=== PATIENT | female | born 1950 | race Caucasian/White ===

== ENCOUNTER → 2023-01-02 | Outpatient (CLI) | payer OTHER | END | disposition home or self-care (01) | LOC: RAD 11:26 | PROVIDERS: ATTEND Orthopaedic Surgery | DX: M25.561 Pain in right knee (principal); M25.562 Pain in left knee ==

== ENCOUNTER 2023-10-06 06:22 | Emergency (ER) | payer OTHER ==
[~2023-10-06] VITALS: Ht 160 cm; Wt 52.2 kg
[2023-10-06] MEDS ORDERED: LOSARTAN-HCTZ1 EAC1 PO (06:35)
[2023-10-06] MEDS ORDERED: TRIJARDY XR 121 EACH PO (06:35)
[2023-10-06] MEDS ORDERED: GLIPIZIDE XL2.5 MG PO (06:35)
[2023-10-06] MEDS ORDERED: NORVASC5 MG PO (06:36)
[2023-10-06] MEDS ORDERED: OMEPRAZOLE20 M1 PO (06:36)
[2023-10-06] MEDS ORDERED: EZALLOR SPRINKL40 MG PO (06:36)
[2023-10-06] MEDS ORDERED: MAGNESIUM500 MG PO (06:36)
[2023-10-06 08:57] LABS: HEMATOCRIT 34.6 % (36.0-45.00); HEMOGLOBIN 11.3 g/dL (12.0-15.00); MEAN CELL VOLUME 88.3 fL (80.00-100.00); MEAN CORPUSCULAR HEMOGLOBIN 28.9 pg (27.00-32.0); MEAN CORPUSCULAR HGB CONC 32.7 g/dl (32.0-36.0); PLATELET COUNT 279 K/uL (150-450); RED BLOOD COUNT 3.92 M/uL (4.00-6.00); RED CELL DISTRIBUTION WIDTH 15.8 % (11.5-14.5)
[2023-10-06 09:24] LABS: URINE APPEARANCE Clear; URINE BILIRRUBIN Negative (NEGATIVE); URINE BLOOD Negative; URINE COLOR Yellow; URINE LEUKOCYTE Negative; URINE NITRATE Negative; URINE PROTEIN Trace (NEGATIVE); URINE UROBILINOGEN 0.2 E.U./dl
[2023-10-06 09:25] LABS: URINE BACTERIA 12.5 uL (0.0-1933); URINE EPITHELIAL CELLS 4.6 uL (0.0-38.8); URINE WBC 29.1 uL (0.0-23.2)
[2023-10-06 09:38] LABS: URINE GLUCOSE >=1000 MG/DL (NEGATIVE); URINE RBC 1.4 uL (0.0-20.8)
[2023-10-06 09:52] LABS: CALCIUM 9.1 mg/dL (8.5-10.1); CREATININE SERUM 1.48 mg/dL (0.55-1.02); GFR 34.47; POTASSIUM 4.28 mEq/L (3.5-5.1)
== END 2023-10-06 12:01 | disposition home or self-care (01) ==
LOC: ER 06:22
PROVIDERS: General Practice
DX: U07.1 COVID-19 (principal); R42 Dizziness and giddiness; Z88.6 Allergy status to analgesic agent

== ENCOUNTER 2025-09-27 08:59 | Outpatient (CLI) | payer OTHER ==
[~2025-09-27 08:59] MED LIST: EZALLOR SPRINKL40 MG PO; GLIPIZIDE XL2.5 MG PO; LOSARTAN-HCTZ1 EAC1 PO; MAGNESIUM500 MG PO; NORVASC5 MG PO; OMEPRAZOLE20 M1 PO; TRIJARDY XR 121 EACH PO
== END 2025-09-27 09:00 | disposition home or self-care (01) ==
LOC: NUCLEAR 08:59
DX: I82.442 Acute embolism and thrombosis of left tibial vein (principal)

== ENCOUNTER 2025-09-27 10:03 | Outpatient (CLI) | payer OTHER | END 2025-09-27 15:20 | disposition home or self-care (01) | LOC: MRI 10:03 | DX: M54.12 Radiculopathy, cervical region (principal); M54.13 Radiculopathy, cervicothoracic region; M54.2 Cervicalgia | CPT/HCPCS: 72141 ==